=== PATIENT | female | born 1960 | race African-American/Black ===

== ENCOUNTER 2016-12-05 13:22 | Emergency (ER) | payer SELFPAY ==
[~2016-12-05] VITALS: Ht 160 cm; Wt 81.5 kg
[2016-12-05 13:24] VITALS: Ht 160 cm; Wt 81.5 kg
--- NOTE | 2016-12-05 16:44 | RADRPT ---
PROCEDURE: XR Chest. CLINICAL INDICATION: Chest pain TECHNIQUE: Chest PA. COMPARISON: No comparison available. FINDINGS: The mediastinal structures are unremarkable. The heart is normal in size and configuration. The pu lmonary vascularity is normal. The lung hamm are unremarkable. No consolidation is identified. The pleural spaces are unremarkable. The axial skeleton is unremarkable. IMPRESSION: No active intrathoracic disease. RPTAT: HGDB .Srinivasan Ghotra MD, MD Date Time Electronically viewed and signed by .Srinivasan Ghotra MD, on 12/05/2016 16:44 .B/
[2016-12-05] MEDS ORDERED: IBUP-1542 PO (16:57)
[2016-12-05 17:05] VITALS: BP 152/78; PULSE 81; RESP 18; TEMP 98.1
--- NOTE | 2016-12-05 18:40 | ERD ---
ER Documentation Chief Complaint Date/Time DATE: 12/05/16 TIME: 18:35 Chief Complaint left side of breast pain 10/10 x 2 weeks HPI Patient is a 56-year-old female who presents to the ED with tenderness to her left chest for 2 weeks. She states that the pain is a pressure-like sensation in her chest that comes and goes for the last 2 weeks. She denies any triggering factors besides the cold weather and taking a deep breath. She states that the pain is alleviated in warm temperature. She also has a history of anxiety and stress. She denies radiation of pain. Denies nausea, vomiting or diarrhea. Denies any cardiac disease. She states that her mom had high blood pressure. Denies pain with exertion. Denies headache or dizziness. Denies leg pain or swelling. Denies shortness of breath, cough or difficulty breathing. ROS All systems reviewed and are negative except as per history of present illness. Medications Home Meds Active Scripts Ibuprofen* (Motrin*) 600 Mg Tab, 600 MG PO Q6, #30 TAB Prov:MATHIEU BRUSH PA-C 12/05/16 Allergies Allergies: Coded Allergies: No Known Allergy (Unverified , 12/05/16) PMhx/Soc History of Surgery: Yes (rt breast lump removal ) Anesthesia Reaction: No Hx Neurological Disorder: No Hx Respiratory Disorders: No Hx Cardiac Disorders: No Hx Psychiatric Problems: No Hx Miscellaneous Medical Probl: No Hx Alcohol Use: No Hx Substance Use: No Hx Tobacco Use: No Smoking Status: Never smoker FmHx Family History: coronary disease, No diabetes, No other Physical Exam Vitals Vital Signs Date Time Temp Pulse Resp B/P Pulse Ox O2 Delivery O2 Flow Rate FiO2 12/05/16 17:05 98.1 81 18 152/78 99 Room Air 12/05/16 13:24 97.1 71 18 169/89 97 Physical Exam GENERAL: Well-developed, well-nourished female. Appears in no acute distress. LUNG: Clear to auscultation bilaterally. No rhonchi, wheezing, rales or coarse breath sounds. HEART: Regular rate and rhythm. No murmurs, rubs or gallops. Extremities: Equal pulses bilaterally. No peripheral clubbing, cyanosis or edema. No unilateral leg swelling. NEUROLOGIC: Alert and oriented. Moving all four extremities. 5/5 strength in all extremities. Normal speech. Steady gait. SKIN: Normal color. Warm and dry. No rashes or lesions. Capillary refill < 2 seconds Procedures/MDM ER COURSE: I kept the patient and/or family informed of laboratory and diagnostic imaging results throughout the emergency room course. EKG, MONITORS, & DIAGNOSTIC IMAGING: EKG performed, read by Dr Frank 61 bpm, normal sinus rhythm, normal axis, no acute ST segment changes, no T wave inversion [place] [id number] Radiology Main Line: [phone] DIAGNOSTIC IMAGING REPORT Patient: JUSTA STANLEY : 1960 Age: 56 Sex: F MR #: [id number] DOS: 12/05/16 1601 Ordering MD: MATHIEU BRUSH PA-C Location: [facility] Room/Bed: PROCEDURE: XR Chest. CLINICAL INDICATION: Chest pain TECHNIQUE: Chest PA. COMPARISON: No comparison available. FINDINGS: The mediastinal structures are unremarkable. The heart is normal in size and configuration. The pulmonary vascularity is normal. The lung hamm are unremarkable. No consolidation is identified. The pleural spaces are unremarkable. The axial skeleton is unremarkable. IMPRESSION: No active intrathoracic disease. RPTAT: HGDB .Srinivasan Ghotra MD, MD Date Time Electronically viewed and signed by .Srinivasan Ghotra MD, MD on 12/05/2016 16:44 .B/ CC: MATHIEU BRUSH PA-C MEDICAL DECISION MAKING: This is a 56-year-old female who presents with left-sided chest pain. Vital signs were reviewed. Patient is afebrile. Patient is not hypoxic. Patient is not toxic or ill-appearing. Pulse 71, blood pressure 169/89 with an O2 sat of 97. Patient does not have a history of hypertension. However her blood pressure is slightly elevated here in the ED. I have low suspicion for hypertensive urgency, emergency or endorgan damage. I have advised patient that she needs to follow-up with her primary care regarding her blood pressure. Her chest pain is likely related to chest wall strain. I have consulted with Dr. Frank who has reviewed her studies and agrees with plan. Patient's heart score is 2, low score. Low suspicion for ACS, PE, AAA, dissection, DVT. Low suspicion for pneumonia, PE, pneumothorax, ACS, epiglottitis, obstruction, TB, pertussis, meningitis, sepsis. DISCHARGE: At this time, patient is stable for discharge and outpatient management with no new complaints during the ER course. Patient was sent home with ibuprofen and to follow-up with primary care.. Patient will be discharged home with instructions to recheck for new or worsening symptoms such as fever, nausea, weakness, LOC and to follow up with primary care in the next 1-2 days. Patient was advised to return to the ER for any new or worsening symptoms. Plan was discussed and patient and/or family understands and agrees. Home instructions were given. Departure Diagnosis: Primary Impression: Chest wall pain Condition: Stable Patient Instructions: Chest Wall Pain, Costochondritis Additional Instructions: Call your primary care doctor TOMORROW for an appointment during the next 1-2 days.See the doctor sooner or return here if your condition worsens before your appointment time. MATHIEU BRUSH PA-C Dec 05, 2016 18:40
== END 2016-12-05 17:06 | disposition home or self-care (01) ==
LOC: FTE 13:22
DX: R07.89 Other chest pain (principal)
CPT/HCPCS: 71010; 93005